=== PATIENT | male | born 1945 | race Hispanic/Latino ===

== ENCOUNTER 2020-08-30 09:56 | Emergency (ER) | payer MEDICARE ==
[~2020-08-30 09:56] MED LIST: ACET-2743 PO; CEFU500T67 PO; TAMS0.4C32 PO; TRAM50TA4 PO
[2020-08-30 10:51] LABS: APPEARANCE,URINE Clear (CLEAR); BILIRUBIN,URINE Small (NEGATIVE); COLOR,URINE Dark Yellow (YELLOW); GLUCOSE, URINE (UA) Negative (NEGATIVE); KETONES,URINE 15 mg/dL (NEGATIVE); LEUKOCYTE ESTERASE ,URINE Trace (NEGATIVE); NITRATE,URINE Negative (NEGATIVE); OCCULT BLOOD,URINE Negative (NEGATIVE); PROTEIN,URINE Trace mg/dL (NEGATIVE)
[2020-08-30 11:31] LABS: BACTERIA,URINE Rare /HPF (None Seen); MUCUS,URINE Few LPF (None Seen); RBC,URINE 0-1 /HPF (0-1); SQUAMOUS EPITHELIAL CELL,UR Rare /HPF (0-2); WBC,URINE 0-1 /HPF (0-1)
[2020-08-30 11:51] LABS: BASOPHILS % (AUTO) 0.9 % (0.0-5.0); EOSINOPHILS % (AUTO) 1.9 % (0.0-8.0); HEMATOCRIT 42.9 % (42-54); LYMPHOCYTES % (AUTO) 20.3 % (21.0-51.0); MEAN CORPUSCULAR HEMOGLOBIN 28.3 pg (27.0-33.0); MEAN CORPUSCULAR HGB CONC 33.1 g/dL (32.0-36.0); MEAN CORPUSCULAR VOLUME 85.5 fL (79-99); MONOCYTES % (AUTO) 6.6 % (3.0-13.0); PLATELET COUNT (AUTO) 316 K/uL (130-400); RED BLOOD CELL COUNT(AUTO) 5.02 MIL/uL (4.50-6.20); WHITE BLOOD COUNT (AUTO) 5.8 K/uL (4.8-10.8)
[2020-08-30] MEDS ORDERED: DIATR MEGLU/DIATRIZOATE SODIUM 30 ML BOTTLE ONE (11:56)
[2020-08-30 12:00] LABS: CREATININE 0.9 mg/dL (0.5-1.5); POTASSIUM 3.1 mmol/L (3.5-5.1)
[2020-08-30 12:04] LABS: ALBUMIN 2.6 g/dL (3.5-5.0); BILIRUBIN,TOTAL 0.3 mg/dL (0.2-1.0); TOTAL PROTEIN, SERUM 6.3 g/dL (6.0-8.3)
[2020-08-30] MEDS ORDERED: IOHEXOL-350 75 ML VIAL IV ONE (13:56)
[2020-08-30] MEDS ORDERED: POTASSIUM CHLORIDE 20 MEQ ERTAB PO ONE (15:04)
[2020-08-30] MEDS ORDERED: SODIUM CHLORIDE 0.9% 500ML 500 ML IV ONE (15:05)
== END 2020-08-30 16:55 | disposition home or self-care (01) ==
LOC: EDH 09:56
DX: K59.00 Constipation, unspecified (principal); K40.90 Unilateral inguinal hernia, without obstruction or gangrene, not specified as recurrent; K29.80 Duodenitis without bleeding; I10 Essential (primary) hypertension
CPT/HCPCS: 36415; 74177; 80053; 81001; 83690; 85025; 93005; 99285; J7040; Q9963; Q9967

== ENCOUNTER → 2021-04-28 | Outpatient (CLI) | payer MEDICARE | END | disposition home or self-care (01) | LOC: RAH 07:38 | PROVIDERS: ATTEND Family Medicine | DX: K83.8 Other specified diseases of biliary tract (principal); K82.8 Other specified diseases of gallbladder | CPT/HCPCS: 76700 ==

== ENCOUNTER 2021-05-01 12:43 | Inpatient (IN) | payer MEDICARE ==
[2021-05-01] VITALS (7 sets, daily range): BP systolic 121–148; BP diastolic 50–62
[~2021-05-01] VITALS: Ht 182.9 cm; Wt 67.8 kg
[2021-05-01] MEDS: PANTOPRAZOLE 40 MG/VIAL IVP SCH (00:46)
[2021-05-01 13:49] LABS: BASOPHILS % (AUTO) 0.6 % (0.0-5.0); HEMATOCRIT 33.2 % (42-54); LYMPHOCYTES % (AUTO) 20.6 % (21.0-51.0); MEAN CORPUSCULAR HEMOGLOBIN 29.3 pg (27.0-33.0); NEUTROPHILS % (AUTO) 68.6 % (40.0-77.0); NUCLEATED RED BLOOD CELLS 0.4 % (0.0-0.19); PLATELET COUNT (AUTO) 232 K/uL (130-400); RED BLOOD CELL COUNT(AUTO) 3.86 MIL/uL (4.50-6.20); RED CELL DISTRIBUTION WIDTH 13.3 % (11.0-15.5); WHITE BLOOD COUNT (AUTO) 5.4 K/uL (4.8-10.8)
[2021-05-01] MEDS ORDERED: KETOROLAC 30MG VIAL (30MG/ML) IVP ONE (14:00)
[2021-05-01] MEDS ORDERED: PANTOPRAZOLE 40 MG/VIAL IVP SCH (14:00)
[2021-05-01] MEDS ORDERED: LACTATED RINGERS 1000ML 1,000 ML IV ONE (14:00)
[2021-05-01] MEDS ORDERED: ONDANSETRON 4MG INJ IVP ONE (14:00)
[2021-05-01 14:09] LABS: APPEARANCE,URINE SL CLOUDY (CLEAR); BILIRUBIN,URINE MODERATE (NEGATIVE); COLOR,URINE YELLOW (YELLOW); GLUCOSE, URINE (UA) NEGATIVE (NEGATIVE); KETONES,URINE 5 mg/dL (NEGATIVE); LEUKOCYTE ESTERASE ,URINE NEGATIVE (NEGATIVE); NITRATE,URINE NEGATIVE (NEGATIVE); OCCULT BLOOD,URINE NEGATIVE (NEGATIVE); PH,URINE 5.5 (5.0-8.0); PROTEIN,URINE 30 mg/dL (NEGATIVE)
[2021-05-01 14:14] LABS: ALBUMIN 3.5 g/dL (3.5-5.0); BILIRUBIN,TOTAL 0.6 mg/dL (0.2-1.0); CREATININE 1.6 mg/dL (0.5-1.5); POTASSIUM 3.6 mmol/L (3.5-5.1); TOTAL PROTEIN, SERUM 7.5 g/dL (6.0-8.3)
[2021-05-01 14:24] LABS: BACTERIA,URINE Few /HPF (None Seen); MUCUS,URINE Moderate LPF (None Seen); SQUAMOUS EPITHELIAL CELL,UR Moderate /HPF (0-2)
[2021-05-01] MEDS ORDERED: 0.9%NACL 50ML IV ONE (16:00)
[2021-05-01] MEDS ORDERED: PIP/TAZ ZOSYN 3.375G 3.375 GM VIAL IVPB ONE (16:00)
[2021-05-01] MEDS ORDERED: HYDROMORPHONE 2 MG VIAL (2MG/ML) IVP PRN (16:30)
[2021-05-01] MEDS ORDERED: ONDANSETRON 4MG INJ IVP PRN (16:30)
[2021-05-01] MEDS: PIP/TAZ ZOSYN 3.375G 3.375 GM VIAL IVPB SCH (17:00)
[2021-05-01] MEDS: 0.9%NACL 50ML IV SCH (17:00)
[2021-05-01] MEDS ORDERED: ZOSYN 3.375GM+NS 50ML 50 ML IV ONE (17:19)
[2021-05-01] MEDS: LACTATED RINGERS 1000ML 1,000 ML IV SCH (19:00)
[2021-05-02] VITALS (10 sets, daily range): BP systolic 95–154; BP diastolic 44–64
[2021-05-02] MEDS: 0.9%NACL 50ML IV SCH (01:00)
[2021-05-02] MEDS: PIP/TAZ ZOSYN 3.375G 3.375 GM VIAL IVPB SCH ×2 (01:15→10:55)
[2021-05-02] MEDS ORDERED: ZOSYN 3.375GM+NS 50ML 50 ML IV ONE ×3 (01:17→18:45)
[2021-05-02 06:42] LABS: HEMATOCRIT 32.5 % (42-54); MEAN CORPUSCULAR HEMOGLOBIN 28.7 pg (27.0-33.0); MEAN CORPUSCULAR HGB CONC 33.5 g/dL (32.0-36.0); MEAN CORPUSCULAR VOLUME 85.5 fL (79-99); RED BLOOD CELL COUNT(AUTO) 3.8 MIL/uL (4.50-6.20); RED CELL DISTRIBUTION WIDTH 13.3 % (11.0-15.5); WHITE BLOOD COUNT (AUTO) 4.7 K/uL (4.8-10.8)
[2021-05-02 07:16] LABS: CREATININE 1.8 mg/dL (0.5-1.5); POTASSIUM 4.1 mmol/L (3.5-5.1)
[2021-05-02] MEDS: PANTOPRAZOLE 40 MG/VIAL IVP SCH ×2 (08:42→20:36)
[2021-05-02] MEDS ORDERED: 0.9%NACL 100ML 100 ML ONE (10:53)
[2021-05-02] MEDS: LACTATED RINGERS 1000ML 1,000 ML IV SCH (20:05)
[2021-05-03] VITALS (7 sets, daily range): BP systolic 122–158; BP diastolic 45–63
[2021-05-03] MEDS: PIP/TAZ ZOSYN 3.375G 3.375 GM VIAL IVPB SCH ×3 (01:00→16:46)
[2021-05-03] MEDS: 0.9%NACL 50ML IV SCH ×4 (01:00→10:50)
[2021-05-03] MEDS: LACTATED RINGERS 1000ML 1,000 ML IV SCH (04:11)
[2021-05-03] MEDS ORDERED: DEXTROSE 50%-WATER 50 ML DISP.SYRIN IV STA (05:43)
[2021-05-03] MEDS ORDERED: LORAZEPAM 2 MG/ML 1 ML VIAL IVP ONE (05:50)
[2021-05-03] MEDS ORDERED: DEXTROSE 50%-WATER 50 ML DISP.SYRIN IV ONE (05:52)
[2021-05-03] MEDS: DEXTROSE 5%-LACTATED RINGERS 1,000 ML IV SCH ×3 (05:53→15:07)
[2021-05-03 05:59] LABS: HEMATOCRIT 29.8 % (42-54); MEAN CORPUSCULAR HGB CONC 33.6 g/dL (32.0-36.0); MEAN CORPUSCULAR VOLUME 86.4 fL (79-99); RED BLOOD CELL COUNT(AUTO) 3.45 MIL/uL (4.50-6.20); RED CELL DISTRIBUTION WIDTH 13.3 % (11.0-15.5); WHITE BLOOD COUNT (AUTO) 4.8 K/uL (4.8-10.8)
[2021-05-03 06:22] LABS: ALBUMIN 2.8 g/dL (3.5-5.0); BILIRUBIN,TOTAL 0.5 mg/dL (0.2-1.0); CREATININE 1.8 mg/dL (0.5-1.5); MAGNESIUM 1.9 mg/dL (1.80-2.40); POTASSIUM 3.7 mmol/L (3.5-5.1); TOTAL PROTEIN, SERUM 6.4 g/dL (6.0-8.3)
[2021-05-03] MEDS ORDERED: ZOSYN 3.375GM+NS 50ML 50 ML IV ONE ×2 (09:56→16:32)
[2021-05-03] MEDS: PANTOPRAZOLE 40 MG/VIAL IVP SCH ×2 (10:03→20:45)
[2021-05-04] VITALS (26 sets, daily range): BP systolic 120–171; BP diastolic 43–75
[2021-05-04] MEDS: PIP/TAZ ZOSYN 3.375G 3.375 GM VIAL IVPB SCH (00:02)
[2021-05-04] MEDS ORDERED: ZOSYN 3.375GM+NS 50ML 50 ML IV ONE ×2 (00:03→11:30)
[2021-05-04 05:23] LABS: HEMATOCRIT 30.7 % (42-54); MEAN CORPUSCULAR HEMOGLOBIN 28.7 pg (27.0-33.0); MEAN CORPUSCULAR HGB CONC 33.9 g/dL (32.0-36.0); MEAN CORPUSCULAR VOLUME 84.8 fL (79-99); RED BLOOD CELL COUNT(AUTO) 3.62 MIL/uL (4.50-6.20); RED CELL DISTRIBUTION WIDTH 13.4 % (11.0-15.5); WHITE BLOOD COUNT (AUTO) 4.7 K/uL (4.8-10.8)
[2021-05-04 05:35] LABS: INR 1.07 (0.85-1.15); PROTHROMBIN TIME 11.6 SEC (9.6-11.6)
[2021-05-04 05:47] LABS: ALBUMIN 2.7 g/dL (3.5-5.0); BILIRUBIN,TOTAL 0.5 mg/dL (0.2-1.0); CREATININE 1.4 mg/dL (0.5-1.5); POTASSIUM 3.1 mmol/L (3.5-5.1); TOTAL PROTEIN, SERUM 6.1 g/dL (6.0-8.3)
[2021-05-04] MEDS ORDERED: LIDOCAINE HCL-MPF 1% 2ML VIAL ONE (06:46)
[2021-05-04] MEDS ORDERED: POTASSIUM CHLORIDE 20MEQ/100ML 100 ML IV ONE (06:46)
[2021-05-04] MEDS ORDERED: POTASSIUM CHLORIDE 20MEQ/100ML 100 ML IV PRN (07:00)
[2021-05-04] MEDS ORDERED: POTASSIUM CHLORIDE 10% ELIXIR 20 MEQ/15 ML UDCUP PO PRN (07:00)
[2021-05-04] MEDS ORDERED: LIDOCAINE HCL-MPF 1% 2ML VIAL IV PRN (07:00)
[2021-05-04] MEDS ORDERED: KCL 20 MEQ ERTAB PO PRN (07:00)
[2021-05-04] MEDS: PANTOPRAZOLE 40 MG/VIAL IVP SCH ×2 (09:14→20:02)
[2021-05-04] MEDS ORDERED: SUCCINYLCHOLINE CHLORIDE 20 MG/ML 10 ML VIAL ONE (11:12)
[2021-05-04] MEDS ORDERED: LIDOCAINE PF 100MG/5ML (2%) SYRINGE 5ML ONE (11:12)
[2021-05-04] MEDS ORDERED: ROCURONIUM 10MG/1ML SYR 10 MG/ML ML ONE (11:13)
[2021-05-04] MEDS ORDERED: FENTANYL CITRATE PF 50 MCG/1 ML 2ML VIAL ONE (11:13)
[2021-05-04] MEDS ORDERED: PROPOFOL 10 MG/ML 20ML VIAL IV ONE (11:13)
[2021-05-04] MEDS ORDERED: LACTATED RINGERS 1000ML 1,000 ML IV ONE (11:30)
[2021-05-04] MEDS ORDERED: IOHEXOL-350 50ML VIAL IV ONE (11:30)
[2021-05-04] MEDS ORDERED: BUPIVACAINE/PF 0.5% 30ML VIAL ONE (11:37)
[2021-05-04] MEDS: DEXTROSE 5%-LACTATED RINGERS 1,000 ML IV SCH ×2 (12:00→21:18)
[2021-05-04] MEDS: ZOSYN 3.375GM +NS 50ML IV SCH ×2 (13:00→20:02)
[2021-05-04] MEDS: 0.9%NACL 50ML 50 ML IV SCH ×2 (13:00→20:04)
[2021-05-04] MEDS ORDERED: GLYCOPYRROLATE 1 MG/5 ML SYRINGE ONE (13:21)
[2021-05-04] MEDS ORDERED: EPHEDRINE SULFATE 50 MG/ML AMPULE ONE (13:25)
[2021-05-04] MEDS ORDERED: NEOSTIGMINE 5MG/5ML SYR IV ONE (13:59)
[2021-05-04] MEDS ORDERED: KETOROLAC 30MG VIAL (30MG/ML) ONE (14:13)
[2021-05-04] MEDS ORDERED: MEPERIDINE-PF 25 MG/ML SYG ONE (14:44)
[2021-05-04] MEDS: LACTATED RINGERS 1000ML 1,000 ML IV SCH (15:47)
[2021-05-04] MEDS ORDERED: MORPHINE 4 MG SYG IVP PRN (16:30)
[2021-05-04] MEDS ORDERED: ACETAMINOPHEN WITH CODEINE 1 TAB TAB PO PRN (16:30)
[2021-05-04] MEDS: 0.9%NACL 50ML IV SCH (17:44)
[2021-05-05] VITALS: BP 112/50
[2021-05-05] MEDS: 0.9%NACL 50ML IV SCH ×2 (00:32→04:31)
[2021-05-05 04:00] VITALS: BP 116/56
[2021-05-05] MEDS: ZOSYN 3.375GM +NS 50ML IV SCH ×2 (04:28→13:16)
[2021-05-05] MEDS: 0.9%NACL 50ML 50 ML IV SCH ×2 (04:29→13:16)
[2021-05-05 05:20] LABS: ALBUMIN 2.4 g/dL (3.5-5.0); BILIRUBIN,DIRECT 0.3 mg/dL (0.0-0.3); BILIRUBIN,TOTAL 0.7 mg/dL (0.2-1.0); CREATININE 1.4 mg/dL (0.5-1.5); POTASSIUM 3.5 mmol/L (3.5-5.1); TOTAL PROTEIN, SERUM 5.6 g/dL (6.0-8.3)
[2021-05-05 08:00] VITALS: BP 121/58
[2021-05-05] MEDS: PANTOPRAZOLE 40 MG/VIAL IVP SCH (08:37)
[2021-05-05] MEDS: DEXTROSE 5%-LACTATED RINGERS 1,000 ML IV SCH (08:54)
[2021-05-05 11:53] VITALS: BP 127/53
[2021-05-05] MEDS ORDERED: AMOX-426 PO (12:59)
== END 2021-05-05 16:00 | disposition home or self-care (01) | DRG 418 ==
LOC: EDH 12:43 → EDHIP 16:28 → OBSVTOIN 16:28 → 3DH 05-03 01:41
PROVIDERS: ADMIT Internal Medicine Pulmonary Disease; ATTEND Internal Medicine Pulmonary Disease
PROC: 0FT44ZZ Resection of Gallbladder, Percutaneous Endoscopic Approach (ICD-10-PCS; principal; 2021-05-04 12:40)
PROC: BF131ZZ Fluoroscopy of Gallbladder and Bile Ducts using Low Osmolar Contrast (ICD-10-PCS; 2021-05-04 12:40)
DX: K80.00 Calculus of gallbladder with acute cholecystitis without obstruction (principal); N17.9 Acute kidney failure, unspecified; I49.3 Ventricular premature depolarization; K66.0 Peritoneal adhesions (postprocedural) (postinfection); K82.8 Other specified diseases of gallbladder; E86.0 Dehydration; K59.00 Constipation, unspecified; Z88.2 Allergy status to sulfonamides; Z88.8 Allergy status to other drugs, medicaments and biological substances
CPT/HCPCS: 36415; 74176; 74181; 74300; 80048; 80053; 80076; 81001; 82150; 82550; 82948; 83690; 83735; 84132; 84484; 85025; 85027; 85610; 85730; 87088; 93005; C9113; G0378; J0330; J1885; J2001; J2060; J2175; J2405; J2543; J2704; J2710; J3010; J3480; J3490; J7030; J7070; J7120; Q9967

== ENCOUNTER 2023-08-23 10:03 | Inpatient (IN) | payer MEDICARE ==
[~2023-08-23] VITALS: Ht 182.9 cm; Wt 79.4 kg
[~2023-08-23 10:03] MED LIST changes: +AMOX-426 PO; -CEFU500T67 PO
[2023-08-23 11:06] LABS: BASOPHILS # (AUTO) 0.03 K/uL (0.00-0.20); BASOPHILS % (AUTO) 0.4 % (0.0-5.0); EOSINOPHILS # (AUTO) 0.05 K/uL (0.00-0.70); EOSINOPHILS % (AUTO) 0.6 % (0.0-8.0); HEMATOCRIT 35.7 % (42-54); IMMATURE GRANULOCYTE ABSOLUTE 0.04 K/uL (0-1); LYMPHOCYTES # (AUTO) 0.9 K/uL (1.0-4.8); LYMPHOCYTES % (AUTO) 11.7 % (21.0-51.0); MEAN CORPUSCULAR HEMOGLOBIN 28.8 pg (27.0-33.0); MEAN CORPUSCULAR HGB CONC 33.1 g/dL (32.0-36.0); MEAN CORPUSCULAR VOLUME 87.1 fL (79-99); MONOCYTES # (AUTO) 0.8 K/uL (0.1-1.0); MONOCYTES % (AUTO) 9.7 % (3.0-13.0); NEUTROPHILS % (AUTO) 77.1 % (40.0-77.0); PLATELET COUNT (AUTO) 217 K/uL (130-400); RED CELL DISTRIBUTION WIDTH 13.8 % (11.0-15.5); WHITE BLOOD COUNT (AUTO) 7.8 K/uL (4.8-10.8)
[2023-08-23 11:10] LABS: CREATININE 1.6 mg/dL (0.5-1.5); POTASSIUM 3.9 mmol/L (3.5-5.1)
[2023-08-23 11:25] LABS: INR 0.97 (0.85-1.15); PROTHROMBIN TIME 11.3 SEC (9.6-11.6)
[2023-08-23 11:26] LABS: PARTIAL THROMBOPLASTIN TIME 30.8 SEC (26.3-35.5)
[2023-08-23 11:58] LABS: CREATININE 1.5 mg/dL (0.5-1.5); POTASSIUM 4.2 mmol/L (3.5-5.1)
[2023-08-23 12:03] LABS: ALBUMIN 2.9 g/dL (3.5-5.0); BILIRUBIN,TOTAL 0.7 mg/dL (0.2-1.0); TOTAL PROTEIN, SERUM 6.8 g/dL (6.0-8.3)
[2023-08-23] MEDS ORDERED: CEFTRIAXONE 1G VIAL IVPB ONE (12:30)
[2023-08-23] MEDS ORDERED: 0.9%NACL 1000ML 1,000 ML IV ONE (14:00)
[2023-08-23] MEDS ORDERED: DONE5TAB33 PO (14:35)
[2023-08-23] MEDS ORDERED: MEMA10TA55 PO (14:35)
[2023-08-23] MEDS ORDERED: GLUCAGON 1MG KIT 1 MG ML IM PRN (15:30)
[2023-08-23] MEDS ORDERED: GUAIFENESIN SUGAR-FREE 100 MG/5 ML UDCUP PO PRN (15:30)
[2023-08-23] MEDS ORDERED: POLYETHYLENE GLYCOL 3350 17 GM POWD.PACK PO PRN (15:30)
[2023-08-23] MEDS ORDERED: DEXTROSE 50%-WATER 50 ML DISP.SYRIN IV PRN (15:30)
[2023-08-23] MEDS ORDERED: MAGNESIUM 2GM PREMIX 50ML 50 ML IV PRN (15:30)
[2023-08-23] MEDS ORDERED: POTASSIUM CHLORIDE 20MEQ/100ML 100 ML IV PRN ×2 (15:30)
[2023-08-23] MEDS ORDERED: POTASSIUM CHLORIDE 10% ELIXIR 20 MEQ/15 ML UDCUP PO PRN (15:30)
[2023-08-23] MEDS ORDERED: HYDRALAZINE 25MG TABLET PO PRN (15:30)
[2023-08-23] MEDS ORDERED: DOCUSATE SODIUM 100 MG CAP PO PRN (15:30)
[2023-08-23] MEDS: ALPRAZOLAM 0.5 MG TABLET PO PRN (15:39)
[2023-08-23] MEDS: INSULIN HUMULIN R 100 UNIT/ML 3ML SQ SCH ×2 (16:30→21:00)
[2023-08-23] MEDS ORDERED: CEFTRIAXONE 2GM VIAL IVPB SCH (17:00)
[2023-08-23] MEDS: CLINDAMYCIN IVPB 900MG/50ML 50 ML IV SCH (17:28)
[2023-08-23 17:50] VITALS: BP 130/60; PULSE 78; RESP 19
[2023-08-23 19:00] VITALS: BP 128/55; PULSE 81; RESP 18
[2023-08-23 23:00] VITALS: BP 125/84; PULSE 71; RESP 18
[2023-08-24] VITALS (7 sets, daily range): BP systolic 111–133; BP diastolic 48–68; PULSE 66–78; RESP 18; O2SAT 98
[2023-08-24] MEDS: CLINDAMYCIN IVPB 900MG/50ML 50 ML IV SCH ×3 (01:54→16:05)
[2023-08-24 04:00] LABS: BASOPHILS # (AUTO) 0.03 K/uL (0.00-0.20); BASOPHILS % (AUTO) 0.5 % (0.0-5.0); EOSINOPHILS # (AUTO) 0.15 K/uL (0.00-0.70); EOSINOPHILS % (AUTO) 2.5 % (0.0-8.0); HEMATOCRIT 31.9 % (42-54); IMMATURE GRANULOCYTE ABSOLUTE 0.01 K/uL (0-1); LYMPHOCYTES % (AUTO) 15.9 % (21.0-51.0); MEAN CORPUSCULAR HEMOGLOBIN 29.2 pg (27.0-33.0); MEAN CORPUSCULAR HGB CONC 33.5 g/dL (32.0-36.0); MEAN CORPUSCULAR VOLUME 87.2 fL (79-99); MONOCYTES # (AUTO) 0.6 K/uL (0.1-1.0); MONOCYTES % (AUTO) 9.5 % (3.0-13.0); NEUTROPHILS # (AUTO) 4.4 K/uL (1.8-7.7); NEUTROPHILS % (AUTO) 71.4 % (40.0-77.0); PLATELET COUNT (AUTO) 195 K/uL (130-400); RED BLOOD CELL COUNT(AUTO) 3.66 MIL/uL (4.50-6.20); RED CELL DISTRIBUTION WIDTH 13.7 % (11.0-15.5); WHITE BLOOD COUNT (AUTO) 6.1 K/uL (4.8-10.8)
[2023-08-24 04:22] LABS: CREATININE 1.4 mg/dL (0.5-1.5); MAGNESIUM 1.9 mg/dL (1.80-2.40)
[2023-08-24] MEDS: INSULIN HUMULIN R 100 UNIT/ML 3ML SQ SCH ×4 (05:44→20:00)
[2023-08-24] MEDS: ENOXAPARIN SODIUM 40 MG/0.4 ML SYRINGE SQ SCH (08:15)
[2023-08-24] MEDS ORDERED: NON-FORMULARY MEDICATION 1 EACH (Memantine HCl 10 MG) PO SCH (09:00)
[2023-08-24] MEDS: CEFTRIAXONE 2GM VIAL IVPB SCH (12:10)
[2023-08-24] MEDS ORDERED: ACETAMINOPHEN 325 MG TAB PO PRN (13:00)
[2023-08-24] MEDS: DONEPEZIL HCL 5 MG TAB PO SCH (20:05)
[2023-08-24] MEDS: MEMANTINE HCL 5 MG TABLET PO SCH (20:05)
[2023-08-25] VITALS (8 sets, daily range): BP systolic 109–147; BP diastolic 53–71; PULSE 72–84; RESP 18–19; O2SAT 97
[2023-08-25] MEDS: CLINDAMYCIN IVPB 900MG/50ML 50 ML IV SCH ×3 (01:56→15:59)
[2023-08-25 05:52] LABS: HEMATOCRIT 32.6 % (42-54); MEAN CORPUSCULAR HEMOGLOBIN 29.6 pg (27.0-33.0); MEAN CORPUSCULAR HGB CONC 32.8 g/dL (32.0-36.0); MEAN CORPUSCULAR VOLUME 90.1 fL (79-99); RED BLOOD CELL COUNT(AUTO) 3.62 MIL/uL (4.50-6.20); RED CELL DISTRIBUTION WIDTH 13.7 % (11.0-15.5); WHITE BLOOD COUNT (AUTO) 5.8 K/uL (4.8-10.8)
[2023-08-25] MEDS: INSULIN HUMULIN R 100 UNIT/ML 3ML SQ SCH ×4 (06:05→20:21)
[2023-08-25 06:20] LABS: CREATININE 1.3 mg/dL (0.5-1.5); MAGNESIUM 1.9 mg/dL (1.80-2.40); PHOSPHORUS 2.9 mg/dL (2.5-4.9); POTASSIUM 3.6 mmol/L (3.5-5.1)
[2023-08-25] MEDS: MEMANTINE HCL 5 MG TABLET PO SCH ×2 (09:19→20:21)
[2023-08-25] MEDS: ENOXAPARIN SODIUM 40 MG/0.4 ML SYRINGE SQ SCH (09:19)
[2023-08-25] MEDS: KCL 20 MEQ ERTAB PO PRN ×2 (09:19→11:14)
[2023-08-25] MEDS: ALPRAZOLAM 0.5 MG TABLET PO PRN ×2 (11:14→17:24)
[2023-08-25] MEDS: CEFTRIAXONE 2GM VIAL IVPB SCH (12:45)
[2023-08-25] MEDS: DONEPEZIL HCL 5 MG TAB PO SCH (20:21)
[2023-08-26] VITALS (7 sets, daily range): BP systolic 109–145; BP diastolic 55–65; PULSE 68–80; RESP 16–19; O2SAT 93–96
[2023-08-26] MEDS: CLINDAMYCIN IVPB 900MG/50ML 50 ML IV SCH ×3 (00:58→18:14)
[2023-08-26 04:37] LABS: HEMATOCRIT 32.7 % (42-54); MEAN CORPUSCULAR HEMOGLOBIN 29.1 pg (27.0-33.0); MEAN CORPUSCULAR HGB CONC 33.9 g/dL (32.0-36.0); MEAN CORPUSCULAR VOLUME 85.6 fL (79-99); RED BLOOD CELL COUNT(AUTO) 3.82 MIL/uL (4.50-6.20); RED CELL DISTRIBUTION WIDTH 13.6 % (11.0-15.5); WHITE BLOOD COUNT (AUTO) 5.1 K/uL (4.8-10.8)
[2023-08-26] MEDS: ALPRAZOLAM 0.5 MG TABLET PO PRN ×2 (04:44→14:33)
[2023-08-26 04:46] LABS: CREATININE 1.2 mg/dL (0.5-1.5); POTASSIUM 4.1 mmol/L (3.5-5.1)
[2023-08-26] MEDS: INSULIN HUMULIN R 100 UNIT/ML 3ML SQ SCH ×4 (06:29→20:53)
[2023-08-26] MEDS: MEMANTINE HCL 5 MG TABLET PO SCH ×2 (08:44→20:17)
[2023-08-26] MEDS: ENOXAPARIN SODIUM 40 MG/0.4 ML SYRINGE SQ SCH (08:44)
[2023-08-26] MEDS: CEFTRIAXONE 2GM VIAL IVPB SCH (12:17)
[2023-08-26] MEDS: ACETAMINOPHEN WITH CODEINE 1 TAB TAB PO PRN (18:15)
[2023-08-26] MEDS: DONEPEZIL HCL 5 MG TAB PO SCH (20:17)
[2023-08-27] VITALS: BP 117/45; PULSE 72; RESP 20
[2023-08-27] MEDS: CLINDAMYCIN IVPB 900MG/50ML 50 ML IV SCH ×3 (01:30→17:34)
[2023-08-27 04:00] VITALS: BP 125/53; PULSE 68; RESP 18
[2023-08-27] MEDS: ACETAMINOPHEN WITH CODEINE 1 TAB TAB PO PRN (04:29)
[2023-08-27] MEDS: INSULIN HUMULIN R 100 UNIT/ML 3ML SQ SCH ×3 (06:30→16:30)
[2023-08-27 08:09] VITALS: BP 113/48; PULSE 65; RESP 20
[2023-08-27 08:20] VITALS: O2SAT 97
[2023-08-27] MEDS: MEMANTINE HCL 5 MG TABLET PO SCH (09:24)
[2023-08-27] MEDS: ENOXAPARIN SODIUM 40 MG/0.4 ML SYRINGE SQ SCH (09:24)
[2023-08-27 10:58] VITALS: BP 129/60; PULSE 69; RESP 16
[2023-08-27] MEDS: CEFTRIAXONE 2GM VIAL IVPB SCH (14:18)
[2023-08-27 16:46] VITALS: BP 121/52; PULSE 74; RESP 18
== END 2023-08-27 20:59 | DRG 602 ==
LOC: EDH 10:03 → OBSVTOIN 15:24 → EDHIP 15:24 → 4CH 17:50
PROVIDERS: ADMIT Internal Medicine Critical Care Medicine; ATTEND Internal Medicine Critical Care Medicine
DX: L03.113 Cellulitis of right upper limb (principal); N17.0 Acute kidney failure with tubular necrosis; L97.319 Non-pressure chronic ulcer of right ankle with unspecified severity; E86.1 Hypovolemia; D64.9 Anemia, unspecified; N18.2 Chronic kidney disease, stage 2 (mild); G30.9 Alzheimer's disease, unspecified; F02.80 Dementia in other diseases classified elsewhere, unspecified severity, without behavioral disturbance, psychotic disturbance, mood disturbance, and anxiety; I73.9 Peripheral vascular disease, unspecified; B96.4 Proteus (mirabilis) (morganii) as the cause of diseases classified elsewhere; B96.5 Pseudomonas (aeruginosa) (mallei) (pseudomallei) as the cause of diseases classified elsewhere; B95.4 Other streptococcus as the cause of diseases classified elsewhere; Z88.2 Allergy status to sulfonamides; Z88.8 Allergy status to other drugs, medicaments and biological substances; Z87.891 Personal history of nicotine dependence; Z89.021 Acquired absence of right finger(s)
CPT/HCPCS: 36415; 73600; 73721; 80048; 80053; 82550; 82948; 83605; 83735; 84100; 84484; 85025; 85027; 85610; 85651; 85730; 87040; 87070; 87077; 87088; 87186; 87205; 93926; 93931; 93971; A6248; G0378; J0696; J1650; J3475; J3490; J7030